=== PATIENT | male | born 1970 | race Two or more races ===

== ENCOUNTER 2017-02-05 21:53 | Emergency (ER) | payer BC ==
[~2017-02-05] VITALS: Ht 182.9 cm; Wt 81.6 kg
[2017-02-05] MEDS ORDERED: FLUORESCEIN SODIUM OPHTH 1 EA STRIP ONE (22:22)
[2017-02-05] MEDS ORDERED: TETRACAINE HCL/PF 0.5% UD 2 ML BOTTLE ONE (22:22)
[2017-02-05] MEDS ORDERED: IV NS 0.9% 1,000 ML BAG IV ONE (22:30)
[2017-02-05] MEDS ORDERED: FLUORESCEIN SODIUM OPHTH 1 EA STRIP OP ONE (22:30)
[2017-02-05] MEDS ORDERED: TETRAcaine 5 ML BOTTLE EACHEYE ONE (22:30)
--- NOTE | 2017-02-05 22:30 | NUR ---
PT AMBULATORY TO ER BED 7 PT STATES "WAS WELDING ON SUNDAY AND SPME BENITO FELL IN RT EYE; FELT IT TODAY AFTER, CO- WORKER TOLD ME MY EYE WAS RED"; DENIES VISUAL DISTURBANCES. PT AOX4 RR EVEN AND UNLABORED. NO SOB NOTED. NAD NOTED. NO NVD THIS TIME. PT WAITING FOR MD BLOUNT.
[2017-02-05] MEDS ORDERED: IV SET PRIMARY 1 EA INFUS.SET MC ONE (22:41)
[2017-02-05] MEDS ORDERED: IV NS 0.9% 1,000 ML ONE (22:41)
--- NOTE | 2017-02-05 23:25 | NUR ---
DR. SANTOS AT BEDSIDE FOR RE-EVAL
[2017-02-05 23:48] VITALS: BP 118/68
--- NOTE | 2017-02-05 23:50 | NUR ---
Patient discharged to home in stable condition. Written and verbal after care instructions given. Patient verbalizes understanding of instruction. ambulatory with a steady gait
== END 2017-02-05 23:51 | disposition home or self-care (01) ==
LOC: ER 21:59
DX: T15.01XA Foreign body in cornea, right eye, initial encounter (principal)
CPT/HCPCS: 65220; 96360; 99284; A4606; J7030; Z7610

== ENCOUNTER 2018-12-06 14:02 | Emergency (ER) | payer BC ==
[~2018-12-06] VITALS: Ht 167.6 cm; Wt 85.3 kg
[2018-12-06 14:25] VITALS: BP 133/82
--- NOTE | 2018-12-06 16:30 | NUR ---
PT LEFT BEFORE RECEIVING/SIGNING DISCHARGE PAPERS
== END 2018-12-06 16:35 | disposition home or self-care (01) ==
LOC: ER 14:03
DX: S60.852A Superficial foreign body of left wrist, initial encounter (principal); M25.532 Pain in left wrist; W01.0XXA Fall on same level from slipping, tripping and stumbling without subsequent striking against object, initial encounter; Y93.01 Activity, walking, marching and hiking; Y92.89 Other specified places as the place of occurrence of the external cause; Y99.8 Other external cause status
CPT/HCPCS: 29125; 73110; 99283; A4606

== ENCOUNTER 2019-11-16 19:41 | Emergency (ER) | payer BC ==
[~2019-11-16] VITALS: Ht 182.9 cm; Wt 83.5 kg
[2019-11-16 19:55] VITALS: BP 119/71
[2019-11-16] MEDS ORDERED: ALBUTEROL FS 2.5 MG/3 ML VIAL.NEB ONE (20:41)
[2019-11-16] MEDS ORDERED: IPRATROPIUM NEB FS 0.5 MG/2.5 ML AMPUL.NEB ONE (20:41)
[2019-11-16] MEDS ORDERED: ALBUTEROL FS 2.5 MG/3 ML VIAL.NEB NEB ONE (21:00)
[2019-11-16] MEDS ORDERED: IPRATROPIUM NEB FS 0.5 MG/2.5 ML AMPUL.NEB NEB ONE (21:00)
[2019-11-16] MEDS ORDERED: predniSONE 20 MG TABLET PO ONE (21:00)
== END 2019-11-16 22:24 | disposition home or self-care (01) ==
LOC: ER 19:48
DX: J06.9 Acute upper respiratory infection, unspecified (principal); J98.01 Acute bronchospasm
CPT/HCPCS: 71045-TC